=== PATIENT | male | born 1955 | race Caucasian/White ===

== ENCOUNTER → 2016-08-02 | Outpatient (CLI) | payer MEDICARE, OTHER ==
--- NOTE | 2016-08-02 15:07 | MR ---
EXAMINATION TYPE: MR shoulder LT wo con DATE OF EXAM: 08/02/2016 12:45 PM COMPARISON: NONE HISTORY: Left shoulder pain per order. History of prior surgery 1998 with chronic pain in shoulder si nce 1995 per patient. TECHNIQUE: Multiplanar, multisequence imaging of the left shoulder is performed without contrast. FINDINGS: Rotator Cuff: Some increased signal is seen in distal supraspinatus tendon best on coronal image 13. No significant focal or full-thickness retracted tear is identified. Rotator cuff muscle bulk is pres erved. Acromioclavicular Joint: There is been prior resection of the distal clavicle. Acromion morphology is felt within normal limits on paracoronal image 13. Underlying fat plane is maintained. Glenohumeral Joint: There is moderate joint space loss glenohumeral joint with synovial thinning in t he central glenoid. Tiny glenohumeral joint effusion is seen. No significant spurring from the gianna l head is present. Labrum: The labrum appears grossly intact given limitation of non-arthrogram study. Biceps Tendon: The long head of biceps is in normal location within bicipital groove. Bone marrow signal: No focal abnormal marrow signal is appreciated. Other: No additional significant abnormality is appreciated. IMPRESSION: Evidence of prior surgery at distal clavicular level. There are some degenerative changes most pronounced at glenohumeral joint. No full-thickness rotator cuff or labral tear is present. Robin e tendinosis distal supraspinatus tendon is present.
--- NOTE | 2016-08-02 15:28 | MR ---
MRI CERVICAL SPINE: MRI LUMBAR SPINE: CLINICAL HISTORY: Cervicalgia and lumbago per order. Low back pain since 1995 causing pain into left side per patient. Headache with neck pain causing pain or weakness in left arm and fingers since 1995 per patient. History of prior neck and back surgery. TECHNIQUE: Multiplanar, multisequence imaging of the cervical and lumbar spine are both performed wit hout and with IV contrast, 15 cc of gadolinium was given intravenously. COMPARISON: None. FINDINGS: C-SPINE: Sagittal images of the cervical spine show the craniocervical junction to appear within normal limits . The cervical and upper thoracic spinal cord is normal in caliber and signal. Vertebral alignment is straightened. There is artifact from prior surgical change suspected anterior fusion hardware C6- C7 level. There appears to be ossific fusion at this level. The vertebral body and intravertebral dis k heights above and below level of surgery are felt within normal limits. There appear to be posterio r disc herniations effacing anterior thecal sac at C3-C4 through C5-C6 level on sagittal images. The bone marrow signal intensity is within normal limits. Mild to moderate anterior spurring in the mid c ervical spine just above surgical levels is present. No suspicious postcontrast enhancement is seen. Axial images show the C2-C3 level to appear within normal limits. Axial images at C3-C4 level show broad-based posterior disc protrusion effacing anterior thecal sac e xtending to ventral surface of spinal cord and causing [id number] bilateral neural foraminal na rrowing. Axial images at C4-C5 level show more focal central disc protrusion with slightly more prominent lobu lated right paracentral component effacing anterior thecal sac up to ventral surface of spinal cord. Bilateral neural foramina are grossly patent. Axial images at C5-C6 level show right paracentral disc protrusion mildly effacing anterior thecal sa c on axial image 29, bilateral neural foramina are patent. Axial images at C6-C7 and C7-T1 levels show artifact from surgical change otherwise are felt within n ormal limits. IMPRESSION: Postsurgical changes C6-C7 level with satisfactory alignment identified. There are multil evel degenerative changes in the mid cervical spine above surgery with most prominent disc herniation s noted at C3-C4 and C4-C5 levels and most prominent neural foraminal narrowing noted C3-C4 level. L-SPINE: FINDINGS: Sagittal images of the lumbar spine show vertebral body heights and alignment to appear sat isfactory. Multilevel disc desiccation is present.. There is moderate disc space narrowing most prono unced posteriorly at L5-S1 level. No significant posterior disc herniations are seen on sagittal imag es. There is postsurgical change in the posterior soft tissues near lumbosacral junction. The conus medullaris is normal in position and signal ending at superior L1 vertebral body level. The bone mar row signal intensity is overall heterogeneous. Mild multilevel anterior spurring is present. No suspi cious postcontrast enhancement is seen. Axial images at the T12-L1 are felt within normal limits. Axial images at the L1-L2 and L2-L3 levels show mild facet degenerative changes bilaterally. Spinal c anal is preserved and bilateral neural foramina are patent. Axial images at the L3-L4 level show mild to moderate facet degenerative changes and ligamentum flavu m hypertrophy and mild broad disc bulge minimally effacing anterior thecal sac. There is mild to mode rate right greater than left neural foraminal narrowing identified with some encroachment along right L3 nerve difficult to exclude on sagittal image 10 at foraminal level. Axial images at the L4-L5 level show mild facet degenerative changes bilaterally. There is broad-base d central disc protrusion mildly effacing anterior thecal sac. There is mild bilateral neural foramin al narrowing at this level identified. Axial images at the L5-S1 level show moderate facet degenerative changes bilaterally. There is centra l disc protrusion seen. Spinal canal is fairly well preserved. There is mild to moderate left-sided n eural foraminal narrowing. Right-sided neural foramen is patent. There appears to be left-sided sonia ectomy defect at this level on last few axial images. No suspicious enhancement is noted. IMPRESSION: Postsurgical changes L5-S1 level. Multilevel degenerative changes are seen in the lumbar spine most prominent at the L3-L4 and L5-S1 levels. Further details are noted as discussed above.
== END | disposition home or self-care (01) ==
LOC: RADMRIMAIN 10:59
PROVIDERS: ATTEND Psychiatry & Neurology Neurology
DX: M19.012 Primary osteoarthritis, left shoulder (principal); M75.92 Shoulder lesion, unspecified, left shoulder; M99.71 Connective tissue and disc stenosis of intervertebral foramina of cervical region; M50.21 Other cervical disc displacement, high cervical region; M47.812 Spondylosis without myelopathy or radiculopathy, cervical region; M47.817 Spondylosis without myelopathy or radiculopathy, lumbosacral region; Z98.890 Other specified postprocedural states; Z98.1 Arthrodesis status
CPT/HCPCS: 72156; 72158; 73221; A9577

== ENCOUNTER → 2016-08-30 | Outpatient (CLI) | payer MEDICARE, OTHER ==
[2016-08-30 12:06] LABS: CH 34.1; CHCM 33.2; HCT 46.7 % (39.0-53.0); HDW 2.34; HGB 14.8 gm/dL (13.0-17.5); MCH 32.8 pg (25.0-35.0); MCHC 31.7 g/dL (31.0-37.0); MCV 103.3 fL (80.0-100.0); Macrocytosis Slight; Mean Platelet Volume 7.2; RBC 4.52 m/uL (4.30-5.90); RDW 12.4 % (11.5-15.5); WBC 6.2 k/uL (3.8-10.6)
[2016-08-30 12:32] LABS: ALT 65 U/L (21-72); AST 40 U/L (17-59); Alkaline Phosphatase 60 U/L (38-126); Anion Gap 10 mmol/L; Blood Urea Nitrogen 9 mg/dL (9-20); Calcium 9.4 mg/dL (8.4-10.2); Carbon Dioxide 26 mmol/L (22-30); Chloride 105 mmol/L (98-107); Glucose 103 mg/dL (74-99); Non-African American GFR(MDRD) >60 (>60 ml/min/1.73 sqM); Potassium 4.5 mmol/L (3.5-5.1); Sodium 141 mmol/L (137-145); Total Bilirubin 0.8 mg/dL (0.2-1.3); Total Protein 7.1 g/dL (6.3-8.2)
[2016-08-30 15:15] LABS: Erythrocyte Sedimentation Rate 3 mm/hr (0-15)
== END | disposition home or self-care (01) ==
LOC: LABWHC1 11:44
PROVIDERS: ATTEND Psychiatry & Neurology Pain Medicine
DX: G62.9 Polyneuropathy, unspecified (principal)
CPT/HCPCS: 36415; 80053; 85027; 85652

== ENCOUNTER → 2024-10-30 | Outpatient (CLI) | payer MEDICARE, OTHER ==
--- NOTE | 2024-10-30 09:19 | MR ---
MR MRCP INDICATION: Patient age:Male; 69 years old; Reason for study: R93.5 ABN FINDING ON DIAGNOSTIC IMAGING; [facility]. COMPARISON: None available. TECHNIQUE: Multi planar, T2-weighted imaging with and without fat saturation and chemical shift imag ing was performed of the abdomen. Then, heavily T2 weighted imaging was utilized in order to study th e biliary system. Maximum intensity projection images were reconstructed from the original data of t he biliary tree. No Gadolinium given. FINDINGS: MRCP: The intrahepatic ducts have a normal appearance. The common bile duct at the level of the marshall creatic head measures 11 mm in size. The common hepatic duct measures 12 mm in size. There is taperi ng of the common bile duct to the ampulla without focal abruption. No filling defect identified. No e vidence for stricture. The pancreatic duct is normal. The gallbladder appears unremarkable. Abdomen: The liver, spleen, adrenal glands, and pancreas have a normal noncontrast appearance. No hyd ronephrosis. Right renal cortical cyst 7 mm T2 hyperintense cyst. No follow up recommended. T2 hypoin tense 5 mm focus probably representing a nonobstructive calculus. IMPRESSION: Extrahepatic biliary ductal dilatation without morphology to suggest stricture. No evidence of choled ocholithiasis. No pancreatic or intrahepatic ductal dilatation. Correlation with biliary labs and con sideration for ERCP should be determined clinically. [facility], , 10/30/2024 9:17 AM
== END | disposition home or self-care (01) ==
LOC: RADMRIMAIN 07:53
PROVIDERS: ATTEND Internal Medicine Gastroenterology
DX: K83.8 Other specified diseases of biliary tract (principal); R93.5 Abnormal findings on diagnostic imaging of other abdominal regions, including retroperitoneum
CPT/HCPCS: 74181